=== PATIENT | female | born 1995 | race Caucasian/White ===

== ENCOUNTER 2016-07-15 08:00 | Outpatient (CLI) | payer BC, OTHER | END 2016-07-15 23:59 | DX: N39.0 Urinary tract infection, site not specified (principal) ==

== ENCOUNTER 2016-08-19 10:54 | Outpatient (CLI) | payer OTHER ==
--- NOTE | 2016-08-19 13:10 | Ultrasound Report ---
PELVIC ULTRASOUND: 08/19/2016 CLINICAL INDICATION: History of right adnexal cyst on CT 08/15/2014. TECHNIQUE: Transabdominal pelvic ultrasound performed for global evaluation. Real-time scanning perf ormed and static images obtained. FINDINGS: Transabdominal imaging was performed. The patient declined transvaginal scanning. The uterus is anteverted, measuring 7.3 x 5.0 x 3.2 cm. The endometrial echo complex measures 8 mm. The right ovary measures 3.2 x 2.1 x 1.7 cm, and appears normal. The left ovary measures 2.9 x 2.5 x 2.1 cm, and demonstrates a 2.0 cm hemorrhagic cyst. Trace free fluid is present. IMPRESSION: RESOLUTION OF PREVIOUSLY SEEN RIGHT OVARIAN CYST. SMALL HEMORRHAGIC LEFT OVARIAN CYST. TRACE FREE FLUID. JOB #: [id number] EXT JOB #:[id number]
== END 2016-08-19 10:55 | disposition home or self-care (01) ==
LOC: DI 10:54
PROVIDERS: ATTEND Physician Assistant Medical
DX: N83.202 Unspecified ovarian cyst, left side (principal)
CPT/HCPCS: 76856

== ENCOUNTER 2016-09-16 14:52 | Outpatient (CLI) | payer OTHER ==
[2016-09-17 08:18] LABS: TEST RESULT REPORT (())
[2016-09-19 00:03] LABS: HSV 1 IGG INDEX <0.90 INDEX (()); HSV 1/2 IGM INDEX <0.90 INDEX (()); HSV 2 IGG INDEX <0.90 INDEX (())
== END 2016-09-16 14:53 | disposition home or self-care (01) ==
LOC: LAB.WCP 14:52
PROVIDERS: ATTEND Physician Assistant Medical
DX: Z20.2 Contact with and (suspected) exposure to infections with a predominantly sexual mode of transmission (principal)
CPT/HCPCS: 36415; 81599; 86592; 86694; 86695; 86696; 86704; 86803; 87340; 87389; 87491; 87591

== ENCOUNTER 2017-04-15 11:25 | Emergency (ER) | payer OTHER ==
[2017-04-15 11:40] VITALS: BP 113/55
[2017-04-15 12:04] LABS: GLUCOSE, URINE (UA) NEGATIVE (NEGATIVE); KETONES,URINE (UA) TRACE mg/dL (NEGATIVE); LEUKOCYTE ESTERASE, URINE NEGATIVE (NEGATIVE); NITRITE,URINE NEGATIVE (NEGATIVE); OCCULT BLOOD,URINE NEGATIVE (NEGATIVE); PH,URINE 5.5 PH (5.0-7.5); PROTEIN,URINE NEGATIVE (NEGATIVE); UROBILINOGEN,URINE 0.2 (NORMAL) E.U./dL (NORMAL)
[2017-04-15 12:08] LABS: BILIRUBIN,URINE NEGATIVE (NEGATIVE); CLARITY,URINE CLEAR (CLEAR); ICTOTEST,URINE NEGATIVE
[2017-04-15] MEDS ORDERED: PHENAZOPYRIDINE 100 MG TABLET PO STA (12:37)
[2017-04-15] MEDS ORDERED: CIPROFLOXACIN 250 MG TABLET PO STA (12:37)
--- NOTE | 2017-04-15 12:40 | ED Physician Documentation ---
PD HPI FEMALE - Stated complaint Stated Complaint: FEMALE - Chief complaint Chief Complaint: UTI - History obtained from History obtained from: Patient - History of Present Illness Timing - onset: Other (Dysuria and suprapubic pressure with burning since yesterday with mild right flank pain, mild nausea but no chills or fevers. Feels like prior UTIs.) Review of Systems Constitutional: denies: Fever, Chills GI: denies: Abdominal Pain, Vomiting, Diarrhea : reports: Dysuria, Frequency. denies: Hesitancy, Incontinent, Hematuria, Discharge PD PAST MEDICAL HISTORY - Past Medical History Past Medical History: No - Past Surgical History Past Surgical History: No - Present Medications Home Medications: Ambulatory Orders Medication Instructions Recorded Confirmed Ciprofloxacin [Cipro] 250 mg PO Q12H 3 Days #6 tablet 04/15/17 Phenazopyridine HCl [Pyridium] 200 mg PO TID #6 tablet 04/15/17 - Allergies Allergies/Adverse Reactions: Allergies Allergy/AdvReac Type Severity Reaction Status Date / Time No Known Drug Allergies Allergy Verified 04/15/17 11:40 - Social History Does the pt smoke?: No Smoking Status: Never smoker Does the pt drink ETOH?: Yes Does the pt have substance abuse?: Yes - Immunizations Immunizations are current?: Yes PD ED PE NORMAL - Vitals Vital signs reviewed: Yes - General General: Alert and oriented X 3, No acute distress - Abdomen Abdomen: Soft, Non tender - Back Back: No CVA TTP, No spinal TTP - Extremities Extremities: No edema, No calf tenderness / cord - Neuro Neuro: Alert and oriented X 3, Normal speech Results - Vitals Vitals: Vital Signs - 24 hr 04/15/17 11:37 Temperature 36.8 C Heart Rate 100 Respiratory 16 Rate Blood Pressure 113/55 L O2 Saturation 98 Oxygen O2 Source Room air - Labs Labs: Laboratory Tests 04/15/17 11:45 Urine Color YELLOW Urine Clarity CLEAR Urine pH 5.5 Ur Specific Julian >=1.030 H Urine Protein NEGATIVE Urine Glucose (UA) NEGATIVE Urine Ketones TRACE Urine Occult Blood NEGATIVE Urine Nitrite NEGATIVE Urine Bilirubin NEGATIVE Urine Urobilinogen 0.2 (NORMAL) Ur Leukocyte Esterase NEGATIVE Ur Microscopic Review NOT INDICATED Urine Culture Comments NOT INDICATED PD MEDICAL DECISION MAKING - ED course ED course: Sounds like simple cystitis but her urinalysis is pretty normal. I recommended a pelvic exam with swabs to rule out other etiologies, she did not want to do this and wanted to trial some antibiotics. Close follow-up instructions were given. Departure - Departure Disposition: 01 Home, Self Care Clinical Impression: Cystitis Condition: Good Record reviewed to determine appropriate education?: Yes Instructions: ED UTI Cystitis Female Prescriptions: Ciprofloxacin [Cipro] 250 mg PO Q12H 3 Days #6 tablet Phenazopyridine HCl [Pyridium] 200 mg PO TID #6 tablet Comments: As discussed since your urinalysis is normal, the diagnosis of simple UTI is in question, therefore return if worse or if new symptoms develop, or if not better in 48 hours.
== END 2017-04-15 12:53 | disposition home or self-care (01) ==
LOC: ED 11:25
DX: N30.90 Cystitis, unspecified without hematuria (principal)
CPT/HCPCS: 81003; 99283; A9270; 81001; 87086

== ENCOUNTER 2017-07-15 19:30 | Emergency (ER) | payer OTHER ==
[2017-07-15] MEDS ORDERED: cephALEXin 250 MG CAPSULE PO STA (20:46)
--- NOTE | 2017-07-15 20:51 | ED Physician Documentation ---
PD HPI SKIN - Stated complaint Stated Complaint: RASH ON NECK - Chief complaint Chief Complaint: Wound - History obtained from History obtained from: Patient - History of Present Illness Timing - onset: How many days ago (4) Timing - details: Gradual onset, Still present Location: Neck Quality / character: Painful, Discolored Associated symptoms: No: Fever, Myalgias Recently seen: Not recently seen - Additional information Additional information: patient is a 22 year old female with a history of asthma who is presenting to the emergency department for a rash on her neck. patient states that it has been going on for the last few days and seems to be getting progressively worse. Patient denies any trauma, new detergents, new jewelry or anything that she can think of the contacted her neck. Review of Systems Ten Systems: 10 systems reviewed and negative Constitutional: denies: Fever, Chills Skin: reports: Rash PD PAST MEDICAL HISTORY - Past Medical History Past Medical History: No - Past Surgical History Past Surgical History: No - Present Medications Home Medications: Ambulatory Orders Medication Instructions Recorded Confirmed Cephalexin [Keflex] 500 mg PO Q6HR #28 capsule 07/15/17 Hydrocortisone 1% Oint 1 applic TP BID #1 oint...g. 07/15/17 [Hydrocortisone] - Allergies Allergies/Adverse Reactions: Allergies Allergy/AdvReac Type Severity Reaction Status Date / Time No Known Drug Allergies Allergy Verified 07/15/17 19:36 - Social History Does the pt smoke?: No Smoking Status: Never smoker Does the pt drink ETOH?: Yes Does the pt have substance abuse?: Yes - Immunizations Immunizations are current?: Yes - POLST Patient has POLST: No PD ED PE NORMAL - Vitals Vital signs reviewed: Yes - General General: Alert and oriented X 3, No acute distress - HEENT HEENT: Atraumatic - Cardiac Cardiac: RRR - Respiratory Respiratory: No respiratory distress - Abdomen Abdomen: Non distended - Neuro Neuro: Alert and oriented X 3 Eye Opening: Spontaneous PD ED PE EXPANDED - HEENT HEENT Visual: 1 - rash 2 - rash - Neck Neck: Other (rash) - Derm Derm: Rash (erythematous, tender rash on two spots on patient's neck) Results - Vitals Vitals: Vital Signs - 24 hr 07/15/17 07/15/17 19:34 21:00 Temperature 36.5 C 37.2 C Heart Rate 89 88 Respiratory 16 16 Rate Blood Pressure 126/83 H 121/66 O2 Saturation 100 100 Oxygen O2 Source Room air PD MEDICAL DECISION MAKING - ED course Complexity details: reviewed old records, reviewed results, re-evaluated patient , considered differential, d/w patient ED course: patient was seen and examined at bedside. patient's rash was examined and was hard to tell if it was a contact dermatitis or a secondary cellulitis. Patient was coverd with keflex and prescriptions were written. Patient was non toxic and well appearing. patient was stable for discharge with outpatient follow up. Departure - Departure Disposition: 01 Home, Self Care Clinical Impression: Dermatitis Condition: Good Instructions: Dermatitis Atopic Follow-Up: Trena Vaughn PA-C [Primary Care Provider] - Within 3 Days Prescriptions: Cephalexin [Keflex] 500 mg PO Q6HR #28 capsule Hydrocortisone 1% Oint [Hydrocortisone] 1 applic TP BID #1 oint...g. Comments: You will need to take the antibiotics 4 times a day for the next week. You should also apply topical steroids. You should take pictures of the rash and if it doesn't improve in the next 48 hours you should follow up with your doctor or return to the emergency department. Discharge Date/Time: 07/15/17 21:00
[2017-07-15] MEDS ORDERED: CEPHALEXIN 250 MG Prepack 8 PO ONE (20:54)
[2017-07-15 21:01] VITALS: BP 121/66
== END 2017-07-15 21:00 | disposition home or self-care (01) ==
LOC: ED 19:30
DX: L30.9 Dermatitis, unspecified (principal); J45.909 Unspecified asthma, uncomplicated
CPT/HCPCS: 99283; A9270

== ENCOUNTER 2018-11-20 13:03 | Emergency (ER) | payer OTHER ==
[2018-11-20 13:13] VITALS: BP 102/79
--- NOTE | 2018-11-20 13:15 | ED Physician Documentation ---
PD HPI HEENT - Stated complaint Stated Complaint: MOUTH PX - Chief complaint Chief Complaint: Heent - History obtained from History obtained from: Patient - History of Present Illness Timing - onset: Yesterday Timing - duration: Days (1) Timing - details: Abrupt onset, Still present Location: Tooth (she is having pain bilateral upper wisdom teeth area, s/p extraction yesterday. Had just couple pain pills from dentist. Having pain today. No swelling nor drainage nor bleeding.) Improves: Medication (pain med helped yesterday and last night, but only had couple of pills.) Associated symptoms: No: Fever, Congestion, Facial swelling Recently seen: Other (wisdom teeth removed yesterday) Review of Systems Constitutional: denies: Fever, Chills Nose: denies: Rhinorrhea / runny nose, Congestion Throat: denies: Sore throat Cardiac: denies: Chest pain / pressure Respiratory: denies: Dyspnea PD PAST MEDICAL HISTORY - Past Medical History Past Medical History: No - Past Surgical History Past Surgical History: No - Present Medications Home Medications: Ambulatory Orders Medication Instructions Recorded Confirmed Cephalexin [Keflex] 500 mg PO Q6HR #28 capsule 07/15/17 Hydrocortisone 1% Oint 1 applic TP BID #1 oint...g. 07/15/17 [Hydrocortisone] Ibuprofen 600 mg PO TID PRN #25 tablet 11/20/18 Oxycodone HCl/Acetaminophen 1 each PO Q6H PRN #20 tablet 11/20/18 [Percocet 5-325 mg Tablet] - Allergies Allergies/Adverse Reactions: Allergies Allergy/AdvReac Type Severity Reaction Status Date / Time No Known Drug Allergies Allergy Verified 11/20/18 13:12 - Social History Does the pt smoke?: No Smoking Status: Never smoker Does the pt drink ETOH?: Yes Does the pt have substance abuse?: Yes - Immunizations Immunizations are current?: Yes - POLST Patient has POLST: No PD ED PE NORMAL - Vitals Vital signs reviewed: Yes - General General: Alert and oriented X 3, No acute distress, Well developed/nourished - HEENT HEENT: Other (upper molars bilaterally with post-extraction changes and no redness nor swelling. ) - Neck Neck: Supple, no meningeal sign, No adenopathy Results - Vitals Vitals: Vital Signs - 24 hr 11/20/18 13:10 Temperature 36.1 C L Heart Rate 111 H Respiratory 19 Rate Blood Pressure 102/79 O2 Saturation 99 Oxygen O2 Source Room air PD MEDICAL DECISION MAKING - ED course Complexity details: considered differential (reasonable to be hurting post extractions. She denies history of addictions nor drug abuse. ), d/w patient Departure - Departure Disposition: 01 Home, Self Care Clinical Impression: S/P tooth extraction, Jaw pain Condition: Stable Record reviewed to determine appropriate education?: Yes Follow-Up: Sherry Pichardo PA [Primary Care Provider] - Prescriptions: Ibuprofen 600 mg PO TID PRN #25 tablet PRN Reason: Pain Oxycodone HCl/Acetaminophen [Percocet 5-325 mg Tablet] 1 each PO Q6H PRN #20 tablet PRN Reason: pain Comments: Ibuprofen anti-inflammatory 2-3 times a day. Add Tylenol or oxycodone as needed for pain short-term. The pain from the tooth extractions should decrease over the next several days to week. Follow-up with your dentist as needed. Discharge Date/Time: 11/20/18 14:01
[2018-11-20] MEDS ORDERED: oxyCODONE 5 MG TABLET PO STA (13:35)
[2018-11-20] MEDS ORDERED: IBUPROFEN 600 MG TABLET PO STA (13:35)
== END 2018-11-20 14:01 | disposition home or self-care (01) ==
LOC: ED 13:03
DX: R68.84 Jaw pain (principal); Z98.818 Other dental procedure status
CPT/HCPCS: 99282; 99283; A9270